=== PATIENT | female | born 1980 | race Caucasian/White ===

== ENCOUNTER → 2024-11-18 09:44 | Outpatient (REF) | payer BC, SELFPAY | LOC: HWRAD 09:44 | PROVIDERS: ATTENDING PHYSICIAN Obstetrics & Gynecology Gynecology; FAMILY PHYSICIAN Physician Assistant Medical | DX: N93.9 Abnormal uterine and vaginal bleeding, unspecified (principal) | CPT/HCPCS: 76830; 76856 ==

== ENCOUNTER → 2024-12-06 13:10 | Outpatient (REF) | payer BC, SELFPAY | LOC: HWRAD 13:10 | PROVIDERS: ATTENDING PHYSICIAN Physician Assistant Medical | DX: M25.532 Pain in left wrist (principal) | CPT/HCPCS: 73110 ==

== ENCOUNTER → 2024-12-15 08:28 | Outpatient (REF) | payer BC, SELFPAY | LOC: WDC 08:28 | PROVIDERS: ATTENDING PHYSICIAN Physician Assistant Medical | DX: Z01.419 Encounter for gynecological examination (general) (routine) without abnormal findings (principal); Z12.31 Encounter for screening mammogram for malignant neoplasm of breast | CPT/HCPCS: 77063; 77067 ==